=== PATIENT | female | born 1950 | race Caucasian/White ===

== ENCOUNTER 2019-06-04 08:51 | Outpatient (RCR) | payer MEDICARE ==
[~2019-06-04 08:51] MED LIST: BYSTOLIC10 MG PO; CYANOCOBALAMIN INJ; FERROUS SULFAT325 MG PO; FUROSEMIDE40 MG PO; PHENAZOPYRIDIN100 MG PO; POTASSIUM CHLO10 ME1 PO; TYLENOL PO; XARELTO10 MG PO
== END 2019-06-05 ==
LOC: PT 08:51
PROVIDERS: ATTEND Specialist
DX: M75.41 Impingement syndrome of right shoulder (principal)

== ENCOUNTER → 2021-01-06 | Outpatient (CLI) | payer OTHER ==
[~2021-01-06] MED LIST changes: +IOPAMIDOL 370 MG/ML 200 ML INFUS..BTL INJ ONE; +SODIUM CHLORIDE 0.9% 50ML 50 ML ONE
[2021-01-06 14:22] LABS: BLOOD UREA NITROGEN 26 mg/dL (7-26); BUN/CREATININE RATIO 31 (6-25); CREATININE, SERUM 0.84 mg/dL (0.57-1.11); EST GLOMERULAR FILTRATION RATE > 60 ML/MIN (60-)
== END ==
LOC: CT 13:35
PROVIDERS: ATTEND Family Medicine
DX: R10.9 Unspecified abdominal pain (principal); K57.30 Diverticulosis of large intestine without perforation or abscess without bleeding
CPT/HCPCS: 36415; 74177; 82565; 84520; Q9967

== ENCOUNTER → 2021-03-01 | Outpatient (CLI) | payer MEDICARE ==
[~2021-03-01] MED LIST changes: +FAMOTIDINE20 MG PO; +HYDROCHLOROTHIA25 MG PO; -IOPAMIDOL 370 MG/ML 200 ML INFUS..BTL INJ ONE; +OMEPRAZOLE40 MG PO; -SODIUM CHLORIDE 0.9% 50ML 50 ML ONE
[2021-03-01 08:18] LABS: BASOPHILS # (AUTO) 0.1 (0.0-0.1); BASOPHILS % 0.8 % (0.0-1.0); EOSINOPHILS # (AUTO) 0.2 (0.0-0.4); EOSINOPHILS % 3.7 % (0.0-6.0); HEMATOCRIT 32.7 % (34.2-44.1); HEMOGLOBIN 10.1 g/dL (12.0-16.0); LYMPHOCYTES # (AUTO) 1.9 (1.0-3.2); MEAN CORPUSCULAR HEMOGLOBIN 24.6 pg (28-32); MEAN CORPUSCULAR HGB CONC 30.9 g/dL (31-35); MEAN CORPUSCULAR VOLUME 79.6 fL (81-99); MONOCYTES # (AUTO) 0.5 (0.2-0.8); MONOCYTES % 8.6 % (4.4-11.3); NEUTROPHILS # (AUTO) 3.2 (2.1-6.9); NEUTROPHILS % 54.6 % (38.7-80.0); PLATELET COUNT 233 x10e3/uL (140-360); RED BLOOD COUNT 4.11 x10e6/uL (3.6-5.1); RED CELL DISTRIBUTION WIDTH 14.8 % (11.7-14.4)
== END ==
LOC: DX 12:30 → EDSTATUS 03-04 10:30
PROVIDERS: ATTEND Internal Medicine Gastroenterology
DX: Z01.812 Encounter for preprocedural laboratory examination (principal); Z20.822 Contact with and (suspected) exposure to COVID-19; Z01.818 Encounter for other preprocedural examination; Z12.11 Encounter for screening for malignant neoplasm of colon
CPT/HCPCS: 36415; 85025; 93005; U0002

== ENCOUNTER → 2021-07-15 | Outpatient (CLI) | payer MEDICARE | LOC: CARD 10:04 | PROVIDERS: ATTEND Family Medicine | DX: I73.9 Peripheral vascular disease, unspecified (principal) | CPT/HCPCS: 93922; 93925 ==

== ENCOUNTER → 2021-08-13 | Outpatient (CLI) | payer MEDICARE | LOC: RAD 08:27 | PROVIDERS: ATTEND Family Medicine | DX: M79.604 Pain in right leg (principal) | CPT/HCPCS: 93971 ==

== ENCOUNTER 2024-10-14 13:22 | Inpatient (IN) | payer MEDICARE ==
[~2024-10-14] VITALS: Ht 160 cm; Wt 116.6 kg
[2024-10-14] VITALS (7 sets, daily range): BP systolic 129–147; BP diastolic 62–68; PULSE 71–81; RESP 16–21; TEMP 98.2–98.4; O2SAT 100
[2024-10-14 13:56] LABS: BASOPHILS # (AUTO) 0.1 (0.0-0.1); BASOPHILS % 0.6 % (0.0-1.0); EOSINOPHILS % 0.5 % (0.0-6.0); HEMATOCRIT 31.4 % (34.2-44.1); LYMPHOCYTES # (AUTO) 1.4 (1.0-3.2); LYMPHOCYTES % 17.5 % (18.0-39.1); MEAN CORPUSCULAR HEMOGLOBIN 31.1 pg (28-32); MEAN CORPUSCULAR HGB CONC 31.8 g/dL (31-35); MEAN CORPUSCULAR VOLUME 97.5 fL (81-99); MONOCYTES # (AUTO) 0.5 (0.2-0.8); MONOCYTES % 6.7 % (4.4-11.3); NEUTROPHILS % 74.1 % (38.7-80.0); PLATELET COUNT 192 x10e3/uL (140-360); RED BLOOD COUNT 3.22 x10e6/uL (3.6-5.1); RED CELL DISTRIBUTION WIDTH 14.6 % (11.7-14.4)
[2024-10-14 14:18] LABS: PROTHROMBIN TIME 13.8 seconds (11.9-14.5)
[2024-10-14 14:27] LABS: ALBUMIN 3.8 g/dL (3.5-5.0); ANION GAP 16.4 mmol/L (8-16); BILIRUBIN,TOTAL 1.3 mg/dL (0.2-1.2); CALCIUM 9.4 mg/dL (8.4-10.2); CREATININE, SERUM 0.93 mg/dL (0.57-1.11); MAGNESIUM 1.6 MG/DL (1.3-2.1); TOTAL PROTEIN 7.6 g/dL (6.5-8.1)
[2024-10-14 14:29] LABS: POTASSIUM 3.4 mmol/L (3.5-5.1)
[2024-10-14 14:33] LABS: TROPONIN I 0.004 ng/mL (0-0.300)
[2024-10-14] MEDS: Vancomycin IV 1 GM in SODIUM CHLORIDE 0.9% 250ML 250 ML IV ONE (15:25)
[2024-10-14] MEDS ORDERED: ONDANSETRON HCL INJ 2MG/ML 2ML 2 MG/ML VIAL IV PRN (15:30)
[2024-10-14] MEDS: HYDROCODONE/APAP 5MG-325MG TAB PO PRN (16:04)
[2024-10-14] MEDS: Morphine 2mg Syringe 2 MG/ML SYR IV STA (16:05)
[2024-10-14] MEDS: ONDANSETRON HCL INJ 2MG/ML 2ML 2 MG/ML VIAL IV STA (17:27)
[2024-10-15] VITALS (8 sets, daily range): BP systolic 96–140; BP diastolic 55–73; PULSE 69–86; RESP 17–21; TEMP 98–100; O2SAT 96–100
[2024-10-15 06:36] LABS: BASOPHILS % 0.3 % (0.0-1.0); EOSINOPHILS # (AUTO) 0.1 (0.0-0.4); EOSINOPHILS % 0.7 % (0.0-6.0); HEMATOCRIT 28.5 % (34.2-44.1); HEMOGLOBIN 9.2 g/dL (12.0-16.0); LYMPHOCYTES # (AUTO) 1.1 (1.0-3.2); LYMPHOCYTES % 15.2 % (18.0-39.1); MEAN CORPUSCULAR HEMOGLOBIN 30.8 pg (28-32); MEAN CORPUSCULAR HGB CONC 32.3 g/dL (31-35); MEAN CORPUSCULAR VOLUME 95.3 fL (81-99); MONOCYTES # (AUTO) 0.7 (0.2-0.8); MONOCYTES % 10.3 % (4.4-11.3); NEUTROPHILS # (AUTO) 5.1 (2.1-6.9); NEUTROPHILS % 73.1 % (38.7-80.0); PLATELET COUNT 168 x10e3/uL (140-360); RED BLOOD COUNT 2.99 x10e6/uL (3.6-5.1); RED CELL DISTRIBUTION WIDTH 14.9 % (11.7-14.4); WHITE BLOOD COUNT 7.02 x10e3/uL (4.8-10.8)
[2024-10-15 07:05] LABS: ALBUMIN 3.1 g/dL (3.5-5.0); ALBUMIN/GLOBULIN RATIO 0.9 (0.8-2.0); ANION GAP 15.7 mmol/L (8-16); BILIRUBIN,TOTAL 1.4 mg/dL (0.2-1.2); CALCIUM 8.6 mg/dL (8.4-10.2); CREATININE, SERUM 0.85 mg/dL (0.57-1.11); POTASSIUM 3.7 mmol/L (3.5-5.1); TOTAL PROTEIN 6.5 g/dL (6.5-8.1)
[2024-10-16 03:32] VITALS: BP 110/61; PULSE 75; RESP 18; TEMP 99.1; O2SAT 96
[2024-10-16 08:10] VITALS: BP 112/81; PULSE 79; RESP 17; TEMP 98.5; O2SAT 98
[2024-10-16 08:23] LABS: BASOPHILS % 0.2 % (0.0-1.0); EOSINOPHILS # (AUTO) 0.1 (0.0-0.4); EOSINOPHILS % 0.7 % (0.0-6.0); HEMATOCRIT 27.9 % (34.2-44.1); HEMOGLOBIN 9.1 g/dL (12.0-16.0); LYMPHOCYTES % 12.5 % (18.0-39.1); MEAN CORPUSCULAR HEMOGLOBIN 30.7 pg (28-32); MEAN CORPUSCULAR HGB CONC 32.6 g/dL (31-35); MEAN CORPUSCULAR VOLUME 94.3 fL (81-99); MONOCYTES # (AUTO) 0.7 (0.2-0.8); MONOCYTES % 8.1 % (4.4-11.3); NEUTROPHILS # (AUTO) 6.3 (2.1-6.9); NEUTROPHILS % 77.9 % (38.7-80.0); PLATELET COUNT 173 x10e3/uL (140-360); RED BLOOD COUNT 2.96 x10e6/uL (3.6-5.1); RED CELL DISTRIBUTION WIDTH 14.7 % (11.7-14.4); WHITE BLOOD COUNT 8.07 x10e3/uL (4.8-10.8)
[2024-10-16] MEDS: ENOXAPARIN SOD INJ 40 MG/0.4 ML SYR SC SCH (08:38)
[2024-10-16] MEDS: PANTOPRAZOLE SOD 40 MG TABEC PO SCH (08:38)
[2024-10-16] MEDS: FUROSEMIDE INJ 10 MG/ML 4 ML VIAL IV SCH (08:38)
[2024-10-16 08:44] LABS: ANION GAP 13.7 mmol/L (8-16); CALCIUM 8.2 mg/dL (8.4-10.2); CREATININE, SERUM 0.84 mg/dL (0.57-1.11); POTASSIUM 3.7 mmol/L (3.5-5.1)
[2024-10-16] MEDS: NEBIVOLOL HCL 2.5 MG TABLET PO SCH (08:46)
[2024-10-16] MEDS: HYDROCODONE/APAP 5MG-325MG TAB PO PRN (10:02)
[2024-10-16 16:51] VITALS: BP 91/61; PULSE 85; RESP 19; TEMP 98.5; O2SAT 98
[2024-10-16 20:30] VITALS: BP 107/60; PULSE 86; RESP 20; TEMP 97.9; O2SAT 99
[2024-10-16 20:45] VITALS: BP 107/60; PULSE 86; RESP 20; TEMP 97.9; O2SAT 99
[2024-10-17 08:24] VITALS: BP 100/49; PULSE 77; RESP 16; TEMP 98.1; O2SAT 96
[2024-10-17 12:14] VITALS: BP 109/69; PULSE 71; RESP 16; TEMP 98.2; O2SAT 100
[2024-10-17 16:16] VITALS: BP 109/69; PULSE 71; RESP 16; TEMP 98.2; O2SAT 100
[2024-10-17 16:24] VITALS: BP 109/61; PULSE 69; RESP 17; TEMP 97.9; O2SAT 94
[2024-10-17 20:00] VITALS: BP 99/50; PULSE 83; RESP 20; TEMP 98.1; O2SAT 100
[2024-10-17 20:45] VITALS: BP 99/50; PULSE 83; RESP 20; TEMP 98.1; O2SAT 100
[2024-10-18] VITALS (7 sets, daily range): BP systolic 94–118; BP diastolic 59–69; PULSE 75–106; RESP 16–18; TEMP 97.2–98.3; O2SAT 95–100
[2024-10-19] VITALS (9 sets, daily range): BP systolic 99–123; BP diastolic 61–85; PULSE 66–80; RESP 17–18; TEMP 97.9–98.3; O2SAT 97–100
[2024-10-20] VITALS (7 sets, daily range): BP systolic 96–143; BP diastolic 55–82; PULSE 64–77; RESP 17–18; TEMP 98.1–98.3; O2SAT 97–100
[2024-10-21] VITALS (9 sets, daily range): BP systolic 102–142; BP diastolic 59–85; PULSE 70–85; RESP 17–18; TEMP 97.8–98.5; O2SAT 91–100
[2024-10-21] MEDS: HYDROCODONE/APAP 5MG-325MG TAB PO PRN (18:17)
[2024-10-21] MEDS: SODIUM CHLORIDE 0.9% 250ML 250 ML ONE (20:21)
[2024-10-22] VITALS (7 sets, daily range): BP systolic 111–131; BP diastolic 62–100; PULSE 71–91; RESP 19–20; TEMP 97.5–98.4; O2SAT 96–99
[2024-10-22 06:46] LABS: BASOPHILS % 0.6 % (0.0-1.0); EOSINOPHILS # (AUTO) 0.1 (0.0-0.4); EOSINOPHILS % 1.9 % (0.0-6.0); HEMATOCRIT 31.1 % (34.2-44.1); HEMOGLOBIN 10.3 g/dL (12.0-16.0); LYMPHOCYTES # (AUTO) 1.1 (1.0-3.2); LYMPHOCYTES % 15.8 % (18.0-39.1); MEAN CORPUSCULAR HEMOGLOBIN 30.5 pg (28-32); MEAN CORPUSCULAR HGB CONC 33.1 g/dL (31-35); MONOCYTES # (AUTO) 0.4 (0.2-0.8); MONOCYTES % 6.3 % (4.4-11.3); NEUTROPHILS # (AUTO) 5.1 (2.1-6.9); NEUTROPHILS % 74.5 % (38.7-80.0); PLATELET COUNT 277 x10e3/uL (140-360); RED BLOOD COUNT 3.38 x10e6/uL (3.6-5.1); RED CELL DISTRIBUTION WIDTH 14.6 % (11.7-14.4); WHITE BLOOD COUNT 6.78 x10e3/uL (4.8-10.8)
[2024-10-22 07:20] LABS: ALBUMIN 2.7 g/dL (3.5-5.0); ALBUMIN/GLOBULIN RATIO 0.6 (0.8-2.0); ANION GAP 14.3 mmol/L (8-16); BILIRUBIN,TOTAL 1.2 mg/dL (0.2-1.2); CALCIUM 8.6 mg/dL (8.4-10.2); CREATININE, SERUM 0.92 mg/dL (0.57-1.11); TOTAL PROTEIN 7.1 g/dL (6.5-8.1)
[2024-10-22 07:22] LABS: POTASSIUM 2.3 mmol/L (3.5-5.1)
[2024-10-22] MEDS: POTASSIUM CHLORIDE 10MEQ EA PO ONE ×3 (08:24→12:50)
[2024-10-23 04:00] VITALS: BP 117/66; PULSE 79; RESP 20; TEMP 98.4; O2SAT 97
[2024-10-23 08:00] VITALS: BP 109/78; PULSE 77; RESP 17; TEMP 98; O2SAT 99
[2024-10-23 12:00] VITALS: BP 115/64; PULSE 91; RESP 17; TEMP 97.5; O2SAT 98
[2024-10-23 16:00] VITALS: BP 101/72; PULSE 75; RESP 17; TEMP 97.8; O2SAT 98
[2024-10-23 20:00] VITALS: BP 127/78; PULSE 80; RESP 21; TEMP 98; O2SAT 99
[2024-10-24] VITALS: BP 116/71; PULSE 78; RESP 20; TEMP 98.2; O2SAT 98
[2024-10-24 04:00] VITALS: BP 122/71; PULSE 76; RESP 18; TEMP 98; O2SAT 98
[2024-10-24 07:56] VITALS: BP 124/72; PULSE 76; RESP 18; TEMP 97.9; O2SAT 97
[2024-10-24 08:50] LABS: ANION GAP 15.5 mmol/L (8-16); CREATININE, SERUM 0.94 mg/dL (0.57-1.11); POTASSIUM 3.5 mmol/L (3.5-5.1)
[2024-10-24 08:58] VITALS: BP 124/72; PULSE 76; RESP 18; TEMP 97.9; O2SAT 97
[2024-10-24 11:40] VITALS: BP 116/77; PULSE 72; RESP 18; TEMP 97.7; O2SAT 98
[2024-10-24 15:49] VITALS: BP 103/75; PULSE 78; RESP 18; TEMP 98; O2SAT 96
[2024-10-24] MEDS ORDERED: ASPIRIN ENTERI325 MG PO (16:47)
[2024-10-25] MEDS ORDERED: FUROSEMIDE 40 MG TAB PO SCH (09:00)
== END 2024-10-24 18:50 | disposition home health service (06) | DRG 603 ==
LOC: ER 13:36 → ERHOLD 15:18 → MED/SURG3 16:42
PROVIDERS: ADMIT Internal Medicine; ATTEND Internal Medicine
DX: L03.116 Cellulitis of left lower limb (principal); I48.20 Chronic atrial fibrillation, unspecified; L03.211 Cellulitis of face; I11.0 Hypertensive heart disease with heart failure; I50.32 Chronic diastolic (congestive) heart failure; S80.12XA Contusion of left lower leg, initial encounter; R26.81 Unsteadiness on feet; Z79.01 Long term (current) use of anticoagulants; Z90.49 Acquired absence of other specified parts of digestive tract; Z90.710 Acquired absence of both cervix and uterus; Z88.5 Allergy status to narcotic agent; W01.0XXA Fall on same level from slipping, tripping and stumbling without subsequent striking against object, initial encounter
CPT/HCPCS: 36415; 70450; 71045; 80048; 80053; 82550; 83735; 83880; 84484; 85025; 85610; 85730; 87040; 93005; 93971; 99252; 99284; J1650; J1940; J2270; J2405; J2543; J7050

== ENCOUNTER 2024-11-08 13:35 | Emergency (ER) | payer MEDICARE ==
[~2024-11-08] VITALS: Ht 160 cm; Wt 116.6 kg
[~2024-11-08 13:35] MED LIST changes: +ASPIRIN ENTERI325 MG PO
[2024-11-08 13:40] VITALS: PULSE 73; RESP 18; TEMP 98.7; O2SAT 98
[2024-11-08 15:06] LABS: BASOPHILS % 0.6 % (0.0-1.0); EOSINOPHILS # (AUTO) 0.1 (0.0-0.4); EOSINOPHILS % 0.8 % (0.0-6.0); HEMATOCRIT 43.6 % (34.2-44.1); HEMOGLOBIN 13.6 g/dL (12.0-16.0); LYMPHOCYTES # (AUTO) 1.3 (1.0-3.2); LYMPHOCYTES % 17.9 % (18.0-39.1); MEAN CORPUSCULAR HEMOGLOBIN 31.5 pg (28-32); MEAN CORPUSCULAR HGB CONC 31.2 g/dL (31-35); MEAN CORPUSCULAR VOLUME 100.9 fL (81-99); MONOCYTES # (AUTO) 0.3 (0.2-0.8); MONOCYTES % 4.7 % (4.4-11.3); NEUTROPHILS # (AUTO) 5.5 (2.1-6.9); NEUTROPHILS % 75.7 % (38.7-80.0); PLATELET COUNT 158 x10e3/uL (140-360); RED BLOOD COUNT 4.32 x10e6/uL (3.6-5.1); RED CELL DISTRIBUTION WIDTH 15.9 % (11.7-14.4)
[2024-11-08] MEDS: Vancomycin IV 1 GM in SODIUM CHLORIDE 0.9% 250ML 250 ML IV SCH (15:18)
[2024-11-08 16:03] LABS: INR 1.08; PROTHROMBIN TIME 14.7 seconds (11.9-14.5)
[2024-11-08 16:04] LABS: PARTIAL THROMBOPLASTIN TIME 42.2 seconds (23.8-35.5)
[2024-11-08 16:16] LABS: ALBUMIN 3.7 g/dL (3.5-5.0); ANION GAP 15.8 mmol/L (8-16); BILIRUBIN,TOTAL 0.8 mg/dL (0.2-1.2); CALCIUM 9.3 mg/dL (8.4-10.2); CREATININE, SERUM 0.94 mg/dL (0.57-1.11); POTASSIUM 3.8 mmol/L (3.5-5.1); TOTAL PROTEIN 7.5 g/dL (6.5-8.1)
[2024-11-08] MEDS ORDERED: MUPIROCIN22 GM TOP (16:50)
[2024-11-08] MEDS ORDERED: CEPHALEXIN500 MG PO (16:50)
[2024-11-08] MEDS ORDERED: BACTRIM DS TAB1 EACH PO (16:50)
== END 2024-11-08 19:02 | disposition home or self-care (01) ==
LOC: ER 14:24
DX: T81.30XA Disruption of wound, unspecified, initial encounter (principal); L03.116 Cellulitis of left lower limb; I10 Essential (primary) hypertension; I50.9 Heart failure, unspecified; I48.91 Unspecified atrial fibrillation; D64.9 Anemia, unspecified; Z79.01 Long term (current) use of anticoagulants
CPT/HCPCS: 36415; 80053; 85025; 85610; 85730; 99284; J0696; J3370; J7050

== ENCOUNTER 2024-12-04 10:20 | Outpatient (RCR) | payer MEDICARE ==
[~2024-12-04 10:20] MED LIST changes: +BACTRIM DS TAB1 EACH PO; +CEPHALEXIN500 MG PO; +LIDOCAINE VISC 2% SOLN 15 ML UDC ONE; +MUPIROCIN22 GM TOP
== END 2024-12-06 ==
LOC: WCC 10:20
PROVIDERS: ATTEND Nurse Practitioner Family
DX: S81.002D Unspecified open wound, left knee, subsequent encounter (principal)
CPT/HCPCS: 87071; 87075; 87186; 87205

== ENCOUNTER 2024-12-25 10:53 | Outpatient (RCR) | payer MEDICARE ==
[2024-12-25] MEDS ORDERED: LIDOCAINE VISC 2% SOLN 15 ML UDC ONE (12:37)
== END 2025-01-03 ==
LOC: WCC 10:53
PROVIDERS: ATTEND Nurse Practitioner Family
DX: S81.002D Unspecified open wound, left knee, subsequent encounter (principal); R60.0 Localized edema

== ENCOUNTER 2025-01-22 13:14 | Outpatient (RCR) | payer MEDICARE | END 2025-02-03 | LOC: WCC 13:14 | PROVIDERS: ATTEND Nurse Practitioner Family | DX: R60.0 Localized edema (principal) ==

== ENCOUNTER 2025-03-04 08:48 | Outpatient (RCR) | payer MEDICARE ==
[~2025-03-04 08:48] MED LIST changes: -LIDOCAINE VISC 2% SOLN 15 ML UDC ONE
== END 2025-03-05 ==
LOC: PT 08:48
PROVIDERS: ATTEND Physician Assistant
DX: M17.12 Unilateral primary osteoarthritis, left knee (principal); S80.02XA Contusion of left knee, initial encounter

== ENCOUNTER 2025-04-11 09:00 | Outpatient (RCR) | payer MEDICARE | END 2025-05-05 | LOC: PT 09:00 | PROVIDERS: ATTEND Physician Assistant | DX: M75.41 Impingement syndrome of right shoulder (principal); M62.81 Muscle weakness (generalized); M25.511 Pain in right shoulder; M25.611 Stiffness of right shoulder, not elsewhere classified ==